=== PATIENT | male | born 1945 | race Caucasian/White ===

== ENCOUNTER → 2020-01-02 | Outpatient (CLI) | payer BC ==
[~2020-01-02] MED LIST: DOC250 PO; HYDACE5; INDO50; LEVFLO500; OMEP10ER; OXYACE5T PO; PANT40
== END | disposition home or self-care (01) ==
LOC: LAB SHORT 15:44 → PLD 15:44
DX: D48.5 Neoplasm of uncertain behavior of skin (principal)
CPT/HCPCS: 88305

== ENCOUNTER → 2020-01-23 | Outpatient (CLI) | payer BC | END | disposition home or self-care (01) | LOC: PLD 08:56 → LAB SHORT 08:56 | DX: C44.319 Basal cell carcinoma of skin of other parts of face (principal) | CPT/HCPCS: 88305 ==

== ENCOUNTER → 2022-02-19 | Outpatient (CLI) | payer BC | END | disposition home or self-care (01) | LOC: LAB SHORT 12:08 → LAB 12:08 → PLD 12:08 | DX: D48.5 Neoplasm of uncertain behavior of skin (principal) | CPT/HCPCS: 88305 ==

== ENCOUNTER → 2022-10-01 | Outpatient (CLI) | payer BC | LOC: LAB SHORT 12:50 → LAB 12:50 | DX: R10.30 Lower abdominal pain, unspecified (principal) | CPT/HCPCS: 87086 ==

== ENCOUNTER 2024-06-02 05:06 | Day surgery (SDC) | payer BC ==
[~2024-06-02] VITALS: Ht 177.8 cm; Wt 83.6 kg
[2024-06-02] MEDS ORDERED: Lactated Ringer's 1,000 ML IV ONE ×3 (06:00→11:30)
[2024-06-02] MEDS ORDERED: Midazolam HCl 1MG / ML 2ML Vial ONE ×2 (10:17→10:54)
[2024-06-02] MEDS ORDERED: NS 0 ML IV ONE (10:18)
[2024-06-02] MEDS ORDERED: CeFAZolin Sodium 2,000 MG VIAL ONE (10:18)
--- NOTE | 2024-06-05 09:55 | NUR ---
06/05/24 0955 EDY MEADOWS LATE CHARTING DUE TO DOWNTIME;ORD.TCR ENTERING HARD COPY CHARTING INFO
[2024-06-05] MEDS ORDERED: SIMV40 PO (10:06)
[2024-06-05] MEDS ORDERED: ELIQUIS5 M2 PO (10:07)
[2024-06-05] MEDS ORDERED: METO50ER PO (10:07)
[2024-06-05] MEDS ORDERED: FURO40 PO (10:09)
[2024-06-05] MEDS ORDERED: POTA10T PO (10:09)
[2024-06-05] MEDS ORDERED: Prednisone10 MG PO (10:10)
[2024-06-05] MEDS ORDERED: Aspir 8181 MG PO (10:10)
[2024-06-05] MEDS ORDERED: PSYSENPA PO (10:10)
[2024-06-05] MEDS ORDERED: CO Q10100 MG PO (10:11)
[2024-06-05] MEDS ORDERED: Milk Thistle175 M1 PO (10:12)
[2024-06-05] MEDS ORDERED: CALCIUM 250-VI1 EAC1 PO (10:13)
[2024-06-05] MEDS ORDERED: METF500 PO (10:14)
--- NOTE | 2024-06-05 10:36 | NUR ---
06/05/24 1036 EDY MEADOWS LATE ENTRY: DOWNTIME ORD.TCR RECORDING HARD COPY CHARTING FOR [facility].NSC
[2024-06-05 10:38] VITALS: BP 113/81
== END 2024-06-02 12:51 | disposition home or self-care (01) ==
LOC: ORSCSDS 05:06
PROVIDERS: Orthopaedic Surgery
PROC: 01N54ZZ Release Median Nerve, Percutaneous Endoscopic Approach (ICD-10-PCS; principal; 2024-06-02 11:30)
DX: G56.01 Carpal tunnel syndrome, right upper limb (principal); E78.00 Pure hypercholesterolemia, unspecified; I10 Essential (primary) hypertension; Z87.891 Personal history of nicotine dependence; Z79.82 Long term (current) use of aspirin; Z79.899 Other long term (current) drug therapy
CPT/HCPCS: J0690; J2250; J7120